=== PATIENT | female | born 1985 | race Caucasian/White ===

== ENCOUNTER 2018-01-05 11:25 | Emergency (ER) | payer SELFPAY | END 2018-01-05 12:05 | disposition home or self-care (01) | LOC: ERS 11:25 | DX: K04.7 Periapical abscess without sinus (principal); F32.9 Major depressive disorder, single episode, unspecified; F17.210 Nicotine dependence, cigarettes, uncomplicated | CPT/HCPCS: 99282 ==

== ENCOUNTER 2018-02-21 18:43 | Emergency (ER) | payer SELFPAY ==
[2018-02-21 19:08] LABS: Bilirubin Negative (Negative); Blood, Urine Trace (Negative); Clarity CLOUDY (Clear); Glucose, Urine (Dipstick) Negative (Negative); Leukocyte Moderate (Negative); Nitrite Negative (Negative); Protein, Urine (Dipstick) Negative (Neg-Trace); Specific Gravity, Urine 1.017 (1.002-1.036); Urobilinogen 0.2 mg/dL (0.2-1.0)
[2018-02-21 19:09] LABS: Bacteria/HPF None Seen HPF (None Seen); Hyaline Casts/LPF 7-10 HYALINE CAST LPF (0-3 Hyaline); Pathc Cast-AUWi Flag 1.01 (0-2.49); Pregnancy Test - Urine (BHCG) POSITIVE (Negative); Pregu Control Background? CLEAR/WHITE (CLR/WHITE); Pregu Control Bar Appear? YES (CONTROL BAR); RBC/HPF 0-3 HPF (0-3); Specific Gravity 1.017 (1.002-1.036); WBC/HPF 21-50 HPF (0-3)
[2018-02-21 19:26] LABS: #Basophils 0.1 thou/uL (0.0-0.2); #Lymphocytes 2.4 thou/uL (1.20-3.40); #Monocytes 0.9 thou/uL (0.11-0.59); #Neutrophils 10.8 thou/uL (1.40-6.50); %Basophils 0.4 % (0.0-1.0); %Eosinophils 0.3 % (0.0-10.0); %Monocytes 6.4 % (0.0-10.0); %Neutrophils 75.8 % (42.0-75.0); Hemoglobin 14.9 g/dL (12.0-16.0); Mean Corpuscular HGB CONC 33.4 g/dL (32.0-36.0); Mean Corpuscular Hemoglobin 30.1 pg (27.0-31.0); Mean Corpuscular Volume 90.2 fL (78.0-98.0); Mean Platelet Volume 6.8 fL (7.4-10.4); Platelet Count 370 thou/uL (130-400); RBC Distribution Width 12.5 % (11.5-14.5); Red Blood Cell (RBC) Count 4.96 mill/uL (4.20-5.40); White Blood Cell (WBC) Count 14.3 thou/uL (4.8-10.8)
[2018-02-21 19:39] LABS: ALT (SGPT) 26 U/L (8-55); AST (SGOT) 20 U/L (5-34); Albumin 4.7 g/dL (3.5-5.0); Alkaline Phosphatase 42 U/L (40-150); Anion Gap 13 mmol/L (10-20); BUN (Urea Nitrogen) 5 mg/dL (7.0-18.7); Bilirubin, Total 0.6 mg/dL (0.2-1.2); Calc. Creatinine Clearance 0 mL/min (70-130); Calcium 9.5 mg/dL (7.8-10.44); Carbon Dioxide 22 mmol/L (22-29); Chloride 106 mmol/L (98-107); Estimated GFR-MDRD Greater than 90; Globulin 2.8 g/dL (2.4-3.5); Glucose 94 mg/dL (70-105); Lipase 15 U/L (8-78); Potassium 3.7 mmol/L (3.5-5.1); Protein, Total 7.5 g/dL (6.0-8.3); Sodium 137 mmol/L (136-145)
[2018-02-23 22:10] LABS: Chlamydia by PCR Not Detected (NotDetected); GC by PCR Not Detected (NotDetected)
== END 2018-02-21 21:21 | disposition home or self-care (01) ==
LOC: ERS 18:43
DX: O21.9 Vomiting of pregnancy, unspecified (principal); O23.41 Unspecified infection of urinary tract in pregnancy, first trimester; O99.611 Diseases of the digestive system complicating pregnancy, first trimester; O99.351 Diseases of the nervous system complicating pregnancy, first trimester; Z87.891 Personal history of nicotine dependence; G43.909 Migraine, unspecified, not intractable, without status migrainosus; Z3A.01 Less than 8 weeks gestation of pregnancy
CPT/HCPCS: 36415; 80053; 81003; 81015; 81025; 83690; 84702; 85025; 86900; 86901; 87086; 87480; 87491; 87510; 87591; 87660; 99284

== ENCOUNTER 2018-06-02 18:10 | Day surgery (SDC) | payer SELFPAY ==
[2018-06-02 18:47] VITALS: BP 122/77; TEMP 98.1; BMI 33.6
== END 2018-06-02 19:30 | disposition home or self-care (01) ==
LOC: L&D/OP 18:10
PROVIDERS: ATTEND Obstetrics & Gynecology
DX: O99.340 Other mental disorders complicating pregnancy, unspecified trimester (principal); F43.9 Reaction to severe stress, unspecified; Z88.0 Allergy status to penicillin; Z88.5 Allergy status to narcotic agent; Z91.040 Latex allergy status
CPT/HCPCS: 99282

== ENCOUNTER 2018-09-02 16:30 | Day surgery (SDC) | payer OTHER ==
[2018-09-02] MEDS ORDERED: Betamet Acet/Betamet Na Ph 30 MG/5 ML VIAL ONE (16:41)
== END 2018-09-02 17:00 | disposition home or self-care (01) ==
LOC: L&D/OP 16:30
PROVIDERS: ATTEND Obstetrics & Gynecology
DX: Z01.89 Encounter for other specified special examinations (principal)
CPT/HCPCS: 84156; J0702

== ENCOUNTER 2018-09-03 16:46 | Day surgery (SDC) | payer OTHER ==
[2018-09-03] MEDS ORDERED: Betamet Acet/Betamet Na Ph 30 MG/5 ML VIAL IM SCH (17:30)
== END 2018-09-03 17:30 | disposition home or self-care (01) ==
LOC: L&D/OP 16:46
PROVIDERS: ATTEND Obstetrics & Gynecology
DX: Z29.8 Encounter for other specified prophylactic measures (principal); Z79.899 Other long term (current) drug therapy; Z88.0 Allergy status to penicillin; Z88.5 Allergy status to narcotic agent; Z91.040 Latex allergy status
CPT/HCPCS: 96372

== ENCOUNTER 2018-09-14 06:03 | Inpatient (IN) | payer OTHER ==
[2018-09-14] MEDS ORDERED: NS / Oxytocin 40 units/1000ml 1,000 ML IV PRN (06:40)
[2018-09-14] MEDS ORDERED: Butorphanol Tartrate 1 MG/ML VIAL SLOW IVP PRN (06:40)
[2018-09-14] MEDS ORDERED: HYDROcodone/Acetaminophen 5/325 mg Tablet PO PRN ×2 (06:40→16:22)
[2018-09-14] MEDS ORDERED: Ondansetron PF 4 MG/2 ML Vial IVP PRN ×2 (06:40→09:43)
[2018-09-14] MEDS ORDERED: Diphenoxylate HCl/Atropine Tablet PO PRN (06:40)
[2018-09-14] MEDS ORDERED: Ibuprofen 800 MG TAB PO PRN (06:40)
[2018-09-14] MEDS ORDERED: Misoprostol 200 MCG TAB PR PRN (06:40)
[2018-09-14] MEDS ORDERED: Carboprost 250 MCG/ML AMP IM PRN (06:40)
[2018-09-14] MEDS ORDERED: Acetaminophen 500 MG TAB PO PRN (06:40)
[2018-09-14] MEDS ORDERED: Lidocaine 1% (PF) 30 ML VIAL SC PRN (06:40)
[2018-09-14] MEDS ORDERED: Promethazine HCl 25 MG/ML VIAL IM PRN ×2 (06:40→09:43)
[2018-09-14] MEDS ORDERED: CEFAZOLIN 2 GM in Premix Bag 1 BAG IVPB SCH (06:45)
--- NOTE | 2018-09-14 06:50 | PDOC.LDHP ---
Labor and Delivery H&P Chief complaint: scheduled induction HPI: 33 yo G1 @ 37w4d by 12 week CRL who presents for IOL due to GHTN. Pt also has A1DM. Current gestational age (weeks): 37 Due date: 10/01/18 Dating criteria: first trimester ultrasound Grav: 1 Para: 0 Current complications: gestational diabetes, gestational hypertension Abnormal US findings: No Past Medical History: Anxiety Migraines Current medications: pre-omar vitamins Previous surgical history: other (ganglion cyst removal) Allergies/Adverse Reactions: Allergies Allergy/AdvReac Type Severity Reaction Status Date / Time latex Allergy Verified 09/14/18 07:30 morphine Allergy Verified 09/14/18 07:30 Penicillins Allergy Verified 09/14/18 07:30 Social history: none - Physical Exam General: NAD Heart: RRR Lungs: nonlabored breathing Abdomen: gravid Extremeties: no edema FHT: category 1 (120s, mod elias, +accels, no decels) Ali [place] contractions every: no notable ctx at this time - Vaginal Exam cm dilated: 6 (per RN, cephalic ) Effacement: 75% Station: -1 - OB Labs Blood type: A RH: positive Antibody Screen: negative HIV: negative RPR: negative HEPSAg: negative 1 hour GCT: positive 3 hour GTT: positive GBS: positive Urine drug screen: negative Rubella: non-immune Additional Labs: SS wnl - Assessment 37w3d IUP GHTN A1DM GBS + Rubella NI - Plan Plan: admit to L&D, GBS antibiotic prophylaxis, informed consent obtained, anesthesia consult for pain management -: Start pitocin MMR PP
[2018-09-14] MEDS: Lactated Ringer's 1,000 ML IV SCH ×2 (07:15→10:15)
[2018-09-14 07:35] LABS: Hemoglobin 13.7 g/dL (12.0-16.0); Mean Corpuscular HGB CONC 33.5 g/dL (32.0-36.0); Mean Corpuscular Hemoglobin 29.9 pg (27.0-31.0); Mean Corpuscular Volume 89.4 fL (78.0-98.0); Mean Platelet Volume 7.9 fL (7.4-10.4); Platelet Count 291 thou/uL (130-400); RBC Distribution Width 13.9 % (11.5-14.5); Red Blood Cell (RBC) Count 4.59 mill/uL (4.20-5.40); White Blood Cell (WBC) Count 17.3 thou/uL (4.8-10.8)
[2018-09-14] MEDS: NS w/ Oxytocin 10 units 500 ML IV SCH (07:49)
[2018-09-14 07:50] LABS: ALT (SGPT) 19 U/L (8-55); AST (SGOT) 11 U/L (5-34); Albumin 3.7 g/dL (3.5-5.0); Alkaline Phosphatase 114 U/L (40-150); Anion Gap 15 mmol/L (10-20); BUN (Urea Nitrogen) 9 mg/dL (7.0-18.7); Bilirubin, Total 0.3 mg/dL (0.2-1.2); Calc. Creatinine Clearance 0 mL/min (70-130); Carbon Dioxide 21 mmol/L (22-29); Chloride 107 mmol/L (98-107); Estimated GFR-MDRD Greater than 90; Globulin 2.3 g/dL (2.4-3.5); Glucose 91 mg/dL (70-105); Potassium 4.1 mmol/L (3.5-5.1); Sodium 139 mmol/L (136-145)
[2018-09-14 08:09] LABS: HBSAg Index 0.35 S/CO (0-0.99); HIV (1/2) Antibody/Antigen Non-Reactive (NonReactive); HIV 1/2 INDEX 0.09 S/CO (<1.00); Hep B Surf Ag Non-Reactive S/CO (NonReactive); Syphilis Antibody Nonreactive (Nonreactive); Syphilis Antibody Index 0.02 S/CO (<1.00 Non-Reactive)
[2018-09-14 08:13] VITALS: BMI 34.6
[2018-09-14] MEDS ORDERED: Fentanyl 4 mcg/Bup 0.1% Cadd 100 ML ONE (09:09)
[2018-09-14] MEDS ORDERED: Lidocaine 1.5%/Epinephrine 1:200,000 5 ML AMPUL IJ ONE (09:29)
[2018-09-14] MEDS ORDERED: diphenhydrAMINE 50 MG/ML VIAL IVP PRN (09:43)
[2018-09-14] MEDS ORDERED: ePHEDrine/0.9% NaCl/PF SYRINGE 50 mg/10 ml SLOW IVP PRN (09:43)
[2018-09-14] MEDS ORDERED: Eucerin (Mineral Oil/Petrolatum,White) 30 gm Jar TOP PRN (09:43)
[2018-09-14] MEDS ORDERED: Acetaminophen 325 MG TAB PO PRN (09:43)
[2018-09-14] MEDS ORDERED: Lactated Ringer's 500 ML IV PRN (09:43)
[2018-09-14] MEDS ORDERED: Naloxone HCl 0.4 mg/ml Vial IVP PRN ×2 (09:43)
[2018-09-14] MEDS ORDERED: Fentanyl 4 mcg/Bupivacaine 0.1% Cassette 100 ML EPIDURAL SCH (09:45)
[2018-09-14] MEDS ORDERED: Communication Order-Pharmacy FS SCH (09:45)
--- NOTE | 2018-09-14 12:37 | PDOC.LDPN ---
Labor & Delivery Progress Note - Subjective Subjective: comfortable - Objective Abnormal vital signs: mild range BPS General: resting Uterine fundus: non tender Dilation: 7 Effacement: 90% Station: -1 FHT: category 1 (120s, mod elias, +accels, no decels -- after AROM noted intermittent arrhythmia of fetus with normal FHR between ) [place] contractions every: q5 min AROM: clear fluid FSE placed: yes - Assessment (1) 37 weeks gestation of Code(s): Z3A.37 - 37 WEEKS GESTATION OF Current Visit: Yes Status : Acute (2) Gestational hypertension Code(s): O13.9 - GESTATIONAL HTN W/O SIGNIFICANT PROTEINURIA, UNSP TRIMESTER Current Visit: Yes Status: Acute (3) Gestational diabetes Code(s): O24.419 - GESTATIONAL DIABETES MELLITUS IN , UNSP CONTROL Current Visit: Yes Status: Acute (4) arrhythmia affecting , antepartum Code(s): O36.8390 - MATERN CARE FOR ABNLT FETL HRT RATE OR RHYM, UNSP TRI, UNSP Current Visit: Yes Status: Acute Plan: continue plan of care, resuscitative measures -: Monitor FHTs. Continue mgmt of labor at this time. Reviewed new onset arrhythmia noted after AROM. Will have NICU to evaluate baby at .
[2018-09-14] MEDS ORDERED: ceFAZolin 1 GM/D5W 1 GM in Premix Bag 1 BAG IVPB SCH (14:00)
--- NOTE | 2018-09-14 15:15 | PDOC.OPDEL ---
OB Operative/Delivery Note Delivery Dr/Surgeon: Ny Ortiz DO Pre-Delivery Diagnosis: medically indicated induction Procedure/Post Delivery Dx: spontaneous vaginal delivery Weeks gestation: 37 Anesthesia: epidural - Findings A Sex: female - 1 min: 7 - 5 min: 9 - Additional Findings/Plan Placenta delivered: spontaneous Repaired Obstetrical Laceration: other (periclitoral and small right hymenal laceration) Estimated blood loss: QBL 40 cc Compilations/Other Findings: Infant in cephalic presentation. SHANTE position. Compound presentation. Nuchal x 1 Post delivery plan: routine recovery
[2018-09-14] MEDS ORDERED: NS / Oxytocin 40 units/1000ml 1,000 ML IV SCH (16:22)
[2018-09-14] MEDS ORDERED: Measles/Mumps/Rubella 10 MCG/0.5 ML VIAL SC ONE (16:22)
[2018-09-14] MEDS ORDERED: diphenhydrAMINE 25 MG CAP PO PRN (16:22)
[2018-09-14] MEDS ORDERED: Benzocaine-Menthol 82.5 ML CAN TOP PRN (16:22)
[2018-09-14] MEDS ORDERED: Milk Of Magnesia 30 ML UDCUP PO PRN (16:22)
[2018-09-14] MEDS ORDERED: Bisacodyl 10 MG SUPP PR PRN (16:22)
[2018-09-14] MEDS: Docusate Calcium (SURFAK) 240 MG CAP PO SCH (21:46)
[2018-09-14] MEDS: Ibuprofen 800 MG TAB PO SCH (21:46)
[2018-09-15] MEDS: Lactated Ringer's 1,000 ML IV SCH ×4 (04:01→23:13)
[2018-09-15] MEDS: Ibuprofen 800 MG TAB PO SCH ×3 (06:11→21:16)
[2018-09-15 07:50] LABS: Hemoglobin 12.1 g/dL (12.0-16.0); Mean Corpuscular HGB CONC 32.8 g/dL (32.0-36.0); Mean Corpuscular Hemoglobin 29.3 pg (27.0-31.0); Mean Corpuscular Volume 89.6 fL (78.0-98.0); Mean Platelet Volume 7.4 fL (7.4-10.4); Platelet Count 229 thou/uL (130-400); RBC Distribution Width 13.9 % (11.5-14.5); Red Blood Cell (RBC) Count 4.11 mill/uL (4.20-5.40)
--- NOTE | 2018-09-15 08:08 | PDOC.PP ---
Post Progress Note Post Day #: 1 Subjective: No concerns. Breast feeding. Seeing LC today. Minimal pain and lochia. PO intake tolerated: yes Flatus: yes Ambulation: yes Vital Signs (12 hours) Temp Pulse Resp BP Pulse Ox 09/15/18 04:30 97.7 F 66 18 126/64 09/15/18 00:10 97.6 F 80 18 116/66 09/14/18 20:19 98.8 F 95 18 137/73 97 Weight Weight 208 lb - Physical Examination General: NAD Cardiovascular: RRR Respiratory: non-labored breathing Abdominal: no distention, appropriately TTP Fundus firm & at: below umbilicus Extremities: negative homans (B) Neurological: no gross focal deficits Psychiatric: A&Ox3, normal affect Result Diagrams: 09/15/18 07:40 09/14/18 07:16 Additional Labs: Post Labs Blood Type A POSITIVE 09/14/18 07:16 Hep Bs Antigen Non-Reactive S/CO (NonReactive) 09/14/18 07:16 (1) 37 weeks gestation of Code(s): Z3A.37 - 37 WEEKS GESTATION OF Status: Resolved (2) Gestational hypertension Code(s): O13.9 - GESTATIONAL HTN W/O SIGNIFICANT PROTEINURIA, UNSP TRIMESTER Status: Resolved (3) Gestational diabetes Code(s): O24.419 - GESTATIONAL DIABETES MELLITUS IN , UNSP CONTROL Status: Resolved (4) arrhythmia affecting , antepartum Code(s): O36.8390 - MATERN CARE FOR ABNLT FETL HRT RATE OR RHYM, UNSP TRI, UNSP Status: Resolved (5) Vaginal delivery Code(s): O80 - ENCOUNTER FOR FULL-TERM UNCOMPLICATED DELIVERY Status: Acute - Assessment/Plan PPD1 VSSAF Continue PP care. Monitor BPs, recent normal - mild. LC today Plan for d/c tomorrow.
[2018-09-15] MEDS: Docusate Calcium (SURFAK) 240 MG CAP PO SCH ×2 (09:39→21:16)
[2018-09-15] MEDS: Prenatal Vitamin 1 TAB PO SCH (09:39)
[2018-09-15] MEDS: NS w/ Oxytocin 10 units 500 ML IV SCH (09:39)
[2018-09-15 20:38] VITALS: TEMP 97.6
[2018-09-16] MEDS: Ibuprofen 800 MG TAB PO SCH ×2 (06:22→15:01)
[2018-09-16] MEDS: Lactated Ringer's 1,000 ML IV SCH ×2 (06:32→15:03)
[2018-09-16] MEDS: NS w/ Oxytocin 10 units 500 ML IV SCH (06:33)
--- NOTE | 2018-09-16 07:42 | PDOC.PP ---
Post Progress Note Post Day #: 2 Subjective: Difficulty getting to latch, LC today again. No other concerns. Minimal pain and bleeding. PO intake tolerated: yes Flatus: yes Ambulation: yes Vital Signs (12 hours) Temp Pulse Resp BP 09/15/18 20:32 97.6 F 89 20 114/66 Weight Weight 208 lb - Physical Examination General: NAD Cardiovascular: RRR Respiratory: non-labored breathing Abdominal: no distention, appropriately TTP Fundus firm & at: below umbilicus Extremities: negative homans (B) Neurological: no gross focal deficits Psychiatric: A&Ox3, normal affect Result Diagrams: 09/15/18 07:40 09/14/18 07:16 Additional Labs: Post Labs Blood Type A POSITIVE 09/14/18 07:16 Hep Bs Antigen Non-Reactive S/CO (NonReactive) 09/14/18 07:16 (1) 37 weeks gestation of Code(s): Z3A.37 - 37 WEEKS GESTATION OF Status: Resolved (2) Gestational hypertension Code(s): O13.9 - GESTATIONAL HTN W/O SIGNIFICANT PROTEINURIA, UNSP TRIMESTER Status: Resolved (3) Gestational diabetes Code(s): O24.419 - GESTATIONAL DIABETES MELLITUS IN , UNSP CONTROL Status: Resolved (4) arrhythmia affecting , antepartum Code(s): O36.8390 - MATERN CARE FOR ABNLT FETL HRT RATE OR RHYM, UNSP TRI, UNSP Status: Resolved (5) Vaginal delivery Code(s): O80 - ENCOUNTER FOR FULL-TERM UNCOMPLICATED DELIVERY Status: Acute - Assessment/Plan PPD2 VSSAF LC this AM D/C and B&B today after LC. Infant staying overnight.
[2018-09-16 08:10] VITALS: BP 133/85
[2018-09-16] MEDS: Docusate Calcium (SURFAK) 240 MG CAP PO SCH (09:46)
[2018-09-16] MEDS: Prenatal Vitamin 1 TAB PO SCH (09:46)
== END 2018-09-16 19:50 | disposition home or self-care (01) | DRG 807 ==
LOC: L&D 06:03 → 3SW 17:26
PROVIDERS: ADMIT Obstetrics & Gynecology; ATTEND Obstetrics & Gynecology
PROC: 10E0XZZ Delivery of Products of Conception, External Approach (ICD-10-PCS; principal; 2018-09-14)
PROC: 3E033VJ Introduction of Other Hormone into Peripheral Vein, Percutaneous Approach (ICD-10-PCS; 2018-09-14)
PROC: 0HQ9XZZ Repair Perineum Skin, External Approach (ICD-10-PCS; 2018-09-14)
PROC: 10907ZC Drainage of Amniotic Fluid, Therapeutic from Products of Conception, Via Natural or Artificial Opening (ICD-10-PCS; 2018-09-14)
DX: O13.4 Gestational [pregnancy-induced] hypertension without significant proteinuria, complicating childbirth (principal); O24.429 Gestational diabetes mellitus in childbirth, unspecified control; O99.824 Streptococcus B carrier state complicating childbirth; O69.81X0 Labor and delivery complicated by cord around neck, without compression, not applicable or unspecified; O32.6XX0 Maternal care for compound presentation, not applicable or unspecified; O70.0 First degree perineal laceration during delivery; O76 Abnormality in fetal heart rate and rhythm complicating labor and delivery; Z37.0 Single live birth; Z3A.37 37 weeks gestation of pregnancy; Z88.5 Allergy status to narcotic agent; Z88.0 Allergy status to penicillin; Z91.040 Latex allergy status
CPT/HCPCS: 36415; 36416; 51702; 80053; 82805; 85027; 86780; 86850; 86900; 86901; 87340; 87389; 90707; J0690; J2590; J3490

== ENCOUNTER 2020-03-18 18:51 | Emergency (ER) | payer OTHER, SELFPAY | END 2020-03-18 19:15 | disposition home or self-care (01) | LOC: ERS 18:51 | DX: K02.9 Dental caries, unspecified (principal); G43.909 Migraine, unspecified, not intractable, without status migrainosus; K21.9 Gastro-esophageal reflux disease without esophagitis; F41.9 Anxiety disorder, unspecified; Z87.891 Personal history of nicotine dependence | CPT/HCPCS: 99283 ==

== ENCOUNTER 2022-05-28 12:20 | Emergency (ER) | payer SELFPAY | END 2022-05-28 14:09 | disposition home or self-care (01) | LOC: ERS 12:20 | DX: B34.9 Viral infection, unspecified (principal); Z20.822 Contact with and (suspected) exposure to COVID-19; K21.9 Gastro-esophageal reflux disease without esophagitis | CPT/HCPCS: 87804; 99283; U0003; U0005 ==

== ENCOUNTER 2022-07-12 19:29 | Emergency (ER) | payer SELFPAY ==
[2022-07-12] MEDS ORDERED: Dexameth. Sod Phosp. 10 MG/ML (CHEMO USE ONLY) ONE (21:12)
== END 2022-07-12 21:18 | disposition home or self-care (01) ==
LOC: ERS 19:29
DX: N39.0 Urinary tract infection, site not specified (principal); K21.9 Gastro-esophageal reflux disease without esophagitis; Z20.822 Contact with and (suspected) exposure to COVID-19
CPT/HCPCS: 71045; J1100; U0003; U0005

== ENCOUNTER 2022-12-03 09:59 | Outpatient (CLI) | payer BC | END 2022-12-03 10:00 | disposition home or self-care (01) | LOC: BICULT 09:59 | PROVIDERS: ATTEND Family Medicine | DX: R22.9 Localized swelling, mass and lump, unspecified (principal) | CPT/HCPCS: 76999 ==

== ENCOUNTER 2023-03-27 09:29 | Outpatient (CLI) | payer BC | END 2023-03-27 09:30 | disposition home or self-care (01) | LOC: BICMRI 09:29 | PROVIDERS: ATTEND Family Medicine | DX: M25.551 Pain in right hip (principal); R79.89 Other specified abnormal findings of blood chemistry; M76.01 Gluteal tendinitis, right hip; M70.71 Other bursitis of hip, right hip ==